=== PATIENT | male | born 1955 | race Caucasian/White ===

== ENCOUNTER → 2020-02-21 | Outpatient (CLI) | payer MEDICARE, MEDICAID ==
--- NOTE | 2020-02-21 16:03 | Diagnostic Imaging Report ---
EXAM: PET/CT INDICATION: Squamous cell of the head and neck. EXAMINATION: After intravenous administration of 14.38 mCi of F18-FDG, into the right antecubital fossa, a series of overlapping emission and transmission PET images was obtained. In the coronal, transaxial and sagittal planes, the area imaged extended from the skull base through the upper thighs. Height: 5' 10" Weight: 200 pounds. Blood glucose: 113 There are no prior PET/CT examinations available for comparison. The previous CT soft tissue neck exam from [facility] in [place], [place] performed on 01/17/2020, was reviewed. That study did show an asymmetrical 1.0 x 2.7 cm soft tissue density immediately posterior to the base of the tongue on the right. By history, the patient has had a recent biopsy of the right retromolar trigone approximately 2 weeks ago. The results of the biopsy indicated squamous cell carcinoma On this study, the previously noted mass is again identified and does appear to be hypermetabolic with a maximum SUV of 15.6. This would coincide with the patient's diagnosis of squamous cell carcinoma. Also, just inferior to the body of the mandible on the right, there is a 1.1 x 2.2 cm slightly hypermetabolic asymmetrically enlarged lymph node with a maximum SUV should be of 3. There is another small 0.8 x 1.1 cm slightly hypermetabolic node immediately posterior to the right submandibular gland. This has a maximum SUV of 3.4. Both of these nodes are worrisome for nodes involved by neoplasm. The CT images do show a 0.9 x 0.9 cm nodule in the right apex. This nodule is hypermetabolic with a maximum SUV of 5.5. There is also an area of increased hypermetabolic activity in the right hilum. The maximum SUV in this area is 4.5. In addition, there is a parenchymal nodule in the left upper lobe measuring 0.8 x 0.9 cm. The maximum SUV in this area is also 3.4. There is also a 2 cm focal area of intense hypermetabolic activity in the right lobe of the liver. The maximum SUV in this area is 8.2. All these findings should be considered neoplastic until proven otherwise. There is no other hypermetabolic activity to suggest malignancy. Physiologic activity is seen in the brain, the kidneys, the bowel and the bladder. The CT images failed to show any sign of an acute abnormality. IMPRESSION: 1. The recently biopsied mass near the base the tongue on the right is extremely hypermetabolic. This would be consistent with the patient's diagnosis of squamous cell carcinoma. There are also 2 nodes in this area which show slightly increased hypermetabolic activity. Both of these nodes are worrisome for nodes involved by neoplasm. 2. The nodules in both upper lobes and the hypermetabolic areas in the right hilum and right lobe of the liver should also be considered neoplastic until proven otherwise. 3. There is no other hypermetabolic activity to suggest the presence of malignancy. 4. There is no sign of an acute abnormality. Dictated by: Dictated on workstation # [id number]
== END ==
LOC: RAD 12:22
PROVIDERS: ATTEND Otolaryngology Otolaryngology/Facial Plastic Surgery
DX: C02.9 Malignant neoplasm of tongue, unspecified (principal); K76.89 Other specified diseases of liver; R91.8 Other nonspecific abnormal finding of lung field
CPT/HCPCS: 78815; A9552

== ENCOUNTER 2020-03-14 02:21 | Outpatient (RCR) | payer MEDICARE, MEDICAID ==
[~2020-03-14 02:21] MED LIST: ACHYD1T PO; ATOR80TA76 PO; BACL10TA PO; CELE200C PO; CLOP75TA69 PO; COLL30OI TP; DULO60CA6 PO; FISH1CAP15 PO; GABA800T PO; IPRA4AER IH; LATA7.5D OP; LISI-596 PO; MONT10TA21 PO; MULT-1136 PO; ZOLP5TAB PO
== END 2020-04-20 08:08 | disposition home or self-care (01) ==
LOC: ONC 02:21
PROVIDERS: ATTEND Internal Medicine Hematology & Oncology
DX: C02.9 Malignant neoplasm of tongue, unspecified (principal)
CPT/HCPCS: 99204; 99214

== ENCOUNTER 2020-07-26 09:44 | Outpatient (RCR) | payer MEDICARE, MEDICAID ==
[2020-06-20 10:57] LABS: BUN/CREATININE RATIO 10; CREATININE SERUM 0.83 MG/DL (0.60-1.30); GFR ESTIMATED > 60
[~2020-07-26 09:44] MED LIST changes: +NS IV 1000 ML (CANCER CTR) 1,000 ML ONE
== END 2020-07-30 09:46 | disposition home or self-care (01) ==
LOC: ONC 09:44
PROVIDERS: ATTEND Internal Medicine Hematology & Oncology
DX: C76.0 Malignant neoplasm of head, face and neck (principal)
CPT/HCPCS: 36415; 77290; 77300; 77301; 77334; 77336; 77338; 77386; 77470; 82565; 84520; 96360

== ENCOUNTER 2020-08-03 14:37 | Emergency (ER) | payer MEDICARE, MEDICAID ==
[~2020-08-03] VITALS: Ht 175.3 cm; Wt 81.6 kg
[~2020-08-03 14:37] MED LIST changes: -NS IV 1000 ML (CANCER CTR) 1,000 ML ONE
[2020-08-03] MEDS ORDERED: LACTATED RINGERS 1,000 ML IV ONE ×2 (14:39→14:45)
--- NOTE | 2020-08-03 15:13 | ED General ---
General Chief Complaint: Dizziness/Syncope Stated Complaint: SYNCOPE,WEAKNESS Nursing Triage Note: PT BROUGHT IN BY [facility] FROM [facility] WITH COMPLAINT OF SYNCOPAL EPISODE. PT STATES WENT TO URGENT CARE FOR N/V/D WEAKNESS THAT STARTED THURSDAY NIGHT AFTER HAVING RADIATION FOR ORAL CANCER. Nursing Sepsis Screen: No Definite Risk Source of Information: Patient (KARISHMA AGUILAR DO) History of Present Illness Date Seen by Provider: Aug 03, 2020 Time Seen by Provider: 14:39 Initial Comments PT ARRIVES VIA EMS FROM [facility] PT STATES HE HAS BEEN SICK SINCE Thursday07/31/19 WITH NAUSEA/VOMITING/DIARRHEA STATES HE HAS NOT HAD VOMITING SINCE THURSDAY, AND ONLY A LITTLE BIT OF DI ARRHEA X 1 EPISODE TODAY. NO BLACK/BLOODY/TARRY STOOLS. NO FEVER C/O GENERALIZED WEAKNESS --WORSE WITH SITTING OR STANDING STATES HE PASSED OUT ON THURSDAY--C/O RUQ AND RIGHT LOWER RIB PAIN--DOES NOT KNOW WHAT HE HIT WHEN HE PASSED OUT. DID NOT SEEK CARE AT THAT TIME. DENIES HITTING HIS HEAD OR HAVING INCREASED NECK OR BACK PAIN . PT HAD SYNCOPAL EPISODE AT [facility] TODAY WELL--NO INJURY PT IS HYPOTENSIVE FOR EMS--BP 70'S/40'S, HR IN 70'S, O2 SATS IN UPPER 80'S. PT DENIES CHEST PAIN NO SHORTNESS OF BREATH NO COUGH NO HEADACHE NO CHANGE IN CHRONIC NECK/BACK/SHOULDER PAIN NO VISION CHANGES PT WAS DX WITH ORAL CANCER 12/2019--HAD RADIATION ON THURSDAY--SYMPTOMS BEGAN AFTER RADIATION TREATMENT. WAS PT'S RADIATION TREATMENT, HAS NOT HAD THIS REACTION BEFORE PT HAS NOT RECEIVED ANY CHEMO OR HAD ANY SURGERY FOR THE CANCER PT STATES HE IS ONLY ABLE TO DRINK ENSURE--NOT TAKING ANY SOLID FOODS DUE TO ORAL CANCER PT WITH EXTENSIVE VASCULAR DISEASE, AND IS ON PLAVIX + ASPIRIN NO CHEST PAIN NO SHORTNESS OF BREATH NO PALPITATIONS PCP: DR. BYRD AT [facility] GOES TO [place] FOR WOUND CARE OF CHRONIC LEFT FOOT WOUND--HAS NOT BEEN THERE FOR > 1 1/2 MONTHS--NOT BEEN THERE SINCE HE STARTED RECEIVING RADIATION RECEIVING RADIATION TREATMENTS HERE AT [facility]. (KARISHMA AGUILAR DO) Allergies and Home Medications Allergies Coded Allergies: No Known Allergies (Verified Allergy, Unknown, 7/17/06) Home Medications Albuterol/Ipratropium 4 Gm Aero, 1 PUFF IH QID, (Reported) Atorvastatin Calcium 80 Mg Tablet, 80 MG PO DAILY, (Reported) Baclofen 10 Mg Tablet, 10 MG PO DAILY, (Reported) Celecoxib 200 Mg Capsule, 200 MG PO DAILY, (Reported) Clopidogrel Bisulfate 75 Mg Tablet, 75 MG PO DAILY, (Reported) Collagenase 30 Gm Oint..gm., 30 GM TP DAILY, (Reported) Duloxetine HCl 60 Mg Capsule.dr, 60 MG PO DAILY, (Reported) Fish Oil/Dha/Epa 1 Each Capsule, 1 EACH PO TID, (Reported) Gabapentin 800 Mg Tablet, 800 MG PO TID, (Reported) Hydrocodone Bit/Acetaminophen 1 Ea Tab, 1 EA PO Q4H, (Reported) Latanoprost/Pf 7.5 Ml Drops, 1 DROP OP HS, (Reported) Lisinopril 20 Mg Tablet, 20 MG PO DAILY, (Reported) Montelukast Sodium 10 Mg Tablet, 10 MG PO HS, (Reported) Multivitamin 1 Each Tablet, 1 TAB PO DAILY, (Reported) Zolpidem Tartrate 5 Mg Tablet, 5 MG PO HS, (Reported) Patient Home Medication List Home Medication List Reviewed: Yes (KARISHMA AGUILAR DO) Review of Systems Review of Systems Constitutional: see HPI; No chills, No diaphoresis, No fever; malaise, weakness EENTM: other (PER HPI-C/O DRY MOUTH--CHRONIC PROBLEM) Respiratory: no symptoms reported; No cough, No short of breath Cardiovascular: see HPI, chest pain (RIGHT LOWER RIBS); No edema, No palpitations; syncope Gastrointestinal: see HPI, abdominal pain (RUQ), diarrhea, nausea, vomiting Genitourinary: no symptoms reported Musculoskeletal: see HPI (NO NEW PAIN--ALL CHRONIC PAIN ) Skin: other (CHRONIC LEFT FOOT WOUND) Psychiatric/Neurological: Denies Headache, Denies Numbness, Denies Paresthesia, Denies Seizure, Denies Tingling, Denies Tremors Hematologic/Lymphatic: See HPI Immunological/Allergic: see HPI (KARISHMA AGUILAR DO) Past Orpdumc-Fhbfgx-Vmmnfs Hx Past Med/Social Hx: Reviewed and Corrections made (KARISHMA AGUILAR DO) Patient Social History Alcohol Use: Past History Recreational Drug Use: No Smoking Status: Current Everyday Smoker Type Used: Cigarettes Recent Foreign Travel: No Contact w/Someone Who Travel: No Recent Infectious Disease Expo: No Recent Hopitalizations: No (KARISHMA AGUILAR DO) Immunizations Up To Date Tetanus Booster (TDap): Unknown PED Vaccines UTD: Yes (KARISHMA AGUILAR DO) Seasonal Allergies Seasonal Allergies: No (KARISHMA AGUILAR DO) Past Medical History Surgeries: Yes Vascular Surgery Respiratory: Yes COPD Cardiac: Yes High Cholesterol, Hypertension, Peripheral Vascular Neurological: No Genitourinary: No Gastrointestinal: No Musculoskeletal: Yes Endocrine: No HEENT: No Cancer: Yes Oral Psychosocial: No Integumentary: No Blood Disorders: No (KARISHMA AGUILAR DO) Family Medical History SOCIAL HISTORY: -HX OF ETOH ABUSE/HEAVY USE--CLAIMS NONE FOR YEARS -DENIES DRUG USE -SMOKES 1/2 PPD NOW SINCE DX WITH ORAL CANCER--DOWN FROM 3 PPD FOR ALL OF HIS LIFE PAST SURGICAL HISTORY: -LIVER BIOPSY -SKIN GRAFT FOR CHRONIC FOOT ULCER -STENTS IN EACH ARM AND EACH LEG -LEFT CAROTID ENDARTERECTOMY (KARISHMA AGUILAR DO) Physical Exam Vital Signs Vital Signs - First Documented 08/03/20 08/03/20 14:39 14:40 Temp 35.8 Pulse 73 Resp 21 B/P (MAP) 70/45 (53) Pulse Ox 97 O2 Delivery Room Air O2 Flow Rate 3.00 (TIERA WILKINS) Vital Signs Capillary Refill : Less Than 3 Seconds (KARISHMA AGUILAR DO) Height, Weight, BMI Height: '" Weight: lbs. oz. kg; 26.00 BMI Method: General Appearance: Chronically ill, Thin, Other (FILTHY, UNKEMPT) HEENT: PERRL/EOMI, Pale Conjunctivae (L), Pale Conjunctivae (R), Other Neck: Normal Inspection, Non Tender Respiratory: Normal Breath Sounds, No Accessory Muscle Use, No Respiratory Distress, Other (MILD TENDERNESS TO RIGHT LOWER RIBS ANTERIORLY. NO CREPITANCE, NO DEFORMITY, NO SUB Q AIR. NO EXTERNAL EVIDENCE OF TRAUMA) Cardiovascular: Regular Rate, Rhythm, No Edema, No Murmur Gastrointestinal: Normal Bowel Sounds, No Pulsatile Mass, Soft, Tenderness (RUQ. NO EXTERNAL EVIDENCE OF TRAUMA) Back: No CVA Tenderness, No Vertebral Tenderness Extremity: No Pedal Edema, Other (LEFT FOOT WITH LARGE CHRONIC APPEARING FOOT ULCER TO DORSAL LATERAL ASPECT OF FOOT, PURULENT DRAINAGE, SURROUNDING ERYTHEMA AND EDEMA. ) Neurologic/Psychiatric: Alert, Oriented x3, No Motor/Sensory Deficits, Normal Mood/Affect, director geophysical laboratory II-XII Norm as Tested Skin: Warm/Dry; No Ecchymosis; Pallor; No Petechia (KARISHMA AGUILAR DO) Focused Exam Lactate Level 08/03/20 14:52: Lactic Acid Level 1.56 (TIERA WILKINS) Lactic Acid Level Laboratory Tests Test 08/03/20 14:52 Lactic Acid Level 1.56 MMOL/L (0.50-2.00) (TIERA WILKINS) Procedures/Interventions Lumen: triple (7 Syriac 20 cm triple-lumen catheter) Central Line Procedure: betadine prep (Chlorhexidine) Position: internal jugular (R) Anesthesia: Lidocaine (1% without epinephrine) Volume Anesthetic (ccs): 3 Complications: none Post Position: sutured, good blood return, position confirmed w/ CXR Risks, benefits and alternatives were discussed with the patient and he consented to the procedure. He was positioned in the usual format and using the usual sterile garment and drapes the patient was dressed out. The skin was thoroughly cleaned with the supplied chlorhexidine prep. After the prep and dried a sterile drape was placed. The 20 cm 7 Syriac triple-lumen catheter was flushed with sterile saline. We used ultrasound guidance to pass the introducer needle into the right internal jugular without difficulty. A guidewire was placed easily without difficulty. No ectopy was seen on the monitor. The supplied 11 blade scalpel was used to make a 2 mm incision at the inferior portion of the introducer needle. The introducer needle was replaced with the dilator. The dilator was taken out and the patient had the central lumen of the triple lumen catheter threaded over the guidewire and placed at 14 cm. The guidewire was removed and the triple-lumen catheter was stitched in place using the supplied braided stitch at 2 different points. The catheter withdrew blood and flushed easily. A sterile dressing was placed over the catheter. The patient tolerated the procedure well. A chest x-ray was obtained that demonstrated no pneumothorax and a new interval central catheter over the shadow of the right internal jugular down the superior vena cava and terminating just proximal to the right atria. (TIERA WILKINS) Progress/Results/Core Measures Suspected Sepsis Recent Fever Within 48 Hours: No Infection Criteria Present: None New/Unexplained Altered Menta: No Sepsis Screen: No Definite Risk SIRS Temperature: Pulse: 73 Respiratory Rate: 21 Laboratory Tests 08/03/20 14:52: White Blood Count 14.5H Blood Pressure 70 /45 Mean: 53 08/03/20 14:52: Lactic Acid Level 1.56 Laboratory Tests 08/03/20 14:52: Creatinine 1.13, INR Comment 1.1, Platelet Count 260, Total Bilirubin 0.2 (KARISHMA AGUILAR DO) Results/Orders Lab Results Laboratory Tests Test 08/03/20 14:52 08/03/20 15:00 Range/Units White Blood Count 14.5 H 4.3-11.0 10^3/uL Red Blood Count 2.23 L 4.30-5.52 10^6/uL Hemoglobin 6.7 *L 13.3-17.7 g/dL Hematocrit 21 L 40-54 % Mean Corpuscular Volume 95 80-99 fL Mean Corpuscular Hemoglobin 30 25-34 pg Mean Corpuscular Hemoglobin Concent 32 32-36 g/dL Red Cell Distribution Width 14.6 H 10.0-14.5 % Platelet Count 260 130-400 10^3/uL Mean Platelet Volume 10.2 9.0-12.2 fL Immature Granulocyte % (Auto) 1 % Neutrophils (%) (Auto) 91 H 42-75 % Lymphocytes (%) (Auto) 1 L 12-44 % Monocytes (%) (Auto) 6 0-12 % Eosinophils (%) (Auto) 1 0-10 % Basophils (%) (Auto) 0 0-10 % Neutrophils # (Auto) 13.2 H 1.8-7.8 10^3/uL Lymphocytes # (Auto) 0.2 L 1.0-4.0 10^3/uL Monocytes # (Auto) 0.9 0.0-1.0 10^3/uL Eosinophils # (Auto) 0.2 0.0-0.3 10^3/uL Basophils # (Auto) 0.0 0.0-0.1 10^3/uL Immature Granulocyte # (Auto) 0.1 0.0-0.1 10^3/uL Neutrophils % (Manual) 93 % Lymphocytes % (Manual) 2 % Monocytes % (Manual) 4 % Eosinophils % (Manual) 1 % Elliptocytes SLIGHT Erythrocyte Sedimentation Rate > 140 H 0-30 MM/HR Prothrombin Time 14.2 12.2-14.7 SEC INR Comment 1.1 0.8-1.4 Activated Partial Thromboplast Time 30 24-35 SEC D-Dimer 1.73 H 0.00-0.49 UG/ML Sodium Level 130 L 135-145 MMOL/L Potassium Level 5.1 H 3.6-5.0 MMOL/L Chloride Level 95 L 98-107 MMOL/L Carbon Dioxide Level 28 21-32 MMOL/L Anion Gap 7 5-14 MMOL/L Blood Urea Nitrogen 54 H 7-18 MG/DL Creatinine 1.13 0.60-1.30 MG/DL Estimat Glomerular Filtration Rate > 60 BUN/Creatinine Ratio 48 Glucose Level 117 H 70-105 MG/DL Lactic Acid Level 1.56 0.50-2.00 MMOL/L Calcium Level 9.1 8.5-10.1 MG/DL Corrected Calcium 9.8 8.5-10.1 MG/DL Magnesium Level 2.7 H 1.6-2.4 MG/DL Total Bilirubin 0.2 0.1-1.0 MG/DL Aspartate Amino Transf (AST/SGOT) 44 H 5-34 U/L Alanine Aminotransferase (ALT/SGPT) 28 0-55 U/L Alkaline Phosphatase 115 40-136 U/L Lactate Dehydrogenase 629 H 125-220 U/L Total Creatine Kinase 164 30-200 U/L Creatine Kinase MB 3.4 <6.6 NG/ML Myoglobin 317.3 H 10.0-92.0 NG/ML Troponin I < 0.028 <0.028 NG/ML B-Type Natriuretic Peptide 60.5 <100.0 PG/ML Total Protein 6.1 L 6.4-8.2 GM/DL Albumin 3.1 L 3.2-4.5 GM/DL Procalcitonin 0.53 H <0.10 NG/ML TSH [facility] Testing 0.90 0.35-4.94 UIU/ML Coronavirus 2019 (TIA) Negative Negative (TIERA WILKINS) Micro Results Microbiology 08/03/20 Influenza Types A,B Antigen (SOFIA) - Final, Complete (TIERA WILKINS) Medications Given in ED Current Medications Medications Dose Ordered Sig/Albert Route Start Time Stop Time Status Last Admin Dose Admin Iohexol 100 ml ONCE ONCE IV 08/03/20 16:00 08/03/20 16:03 DC 08/03/20 17:41 71 ML Lactated Ringer's 1,000 ml @ 0 mls/hr Q0M ONCE IV 08/03/20 14:45 08/03/20 14:46 DC 08/03/20 15:03 0 MLS/HR Ondansetron HCl 4 mg ONCE ONCE IVP 08/03/20 15:15 08/03/20 15:16 DC 08/03/20 15:16 4 MG Pantoprazole 80 mg ONCE ONCE IV 08/03/20 15:15 08/03/20 15:16 DC 08/03/20 15:16 80 MG Sodium Chloride 100 ml ONCE ONCE IV 08/03/20 16:00 08/03/20 16:03 DC 08/03/20 17:41 80 ML (TIERA WILKINS) Vital Signs/I&O 08/03/20 08/03/20 08/03/20 14:39 14:40 17:15 Temp 35.8 35.2 Pulse 73 65 Resp 21 16 B/P (MAP) 70/45 (53) 78/51 Pulse Ox 97 100 98 O2 Delivery Room Air Nasal Cannula O2 Flow Rate 3.00 3.00 (TIERA WILKINS) Vital Signs/I&O Capillary Refill : Less Than 3 Seconds (KARISHMA AGUILAR DO) Blood Pressure Mean: 53 Progress Note : Progress Note PLACED IN ISOLATION ROOM PPE WORN AT ALL TIMES COVID-19 TESTING PERFORMED PRIOR TO TRANSFER, PT HAS NEGATIVE RAPID COVID-19 TEST, WITH ONLY GI SYMPTOMS AND NO OTHER COVID-19 SYMPTOMS, PT TAKEN OFF COVID-19 P.U.I. STATUS. O2 SATS 100% ON 2L/NC GIVEN IV FLUIDS AND BLOOD AND PLACED ON LEVOPHED--BP UP TO > [address] SYSTOLIC. CENTRAL LINE PLACED BY DR. WILKINS (KARISHMA AGUILAR DO) ECG Initial ECG Impression Date: Aug 03, 2020 Initial ECG Impression Time: 14:54 Initial ECG Rate: 69 Initial ECG Rhythm: Normal Sinus (LOW VOLTAGE) Initial ECG Impression: Nonspecific Changes (KARISHMA AGUILAR DO) Diagnostic Imaging Comments CXR--PER RADIOLOGIST REPORT AT 1535 FINDINGS: Heart size is normal. There appears to be some infiltrate or atelectasis in the right perihilar region. Left lung is clear. No effusion or pneumothorax is detected. IMPRESSION: Minimal right perihilar infiltrate or atelectasis. CT CHEST/ABDOMEN/PELVIS--PER RADIOLOGIST REPORT AT 1716 IMPRESSION: 1. Multiple bilateral pulmonary nodules measuring up to 1.4 cm in the right lower lobe. Given history of oral cancer, these findings raise concern for pulmonary metastases. 2. Multiple heterogeneously hypoenhancing lesions throughout the liver concerning for hepatic metastases. 3. A 2.2 x 1.1 cm right perihilar lymph nodes concerning for kurtis metastasis. CT HEAD/CERVICAL SPINE--PER RADIOLOGIST VIA PHONE AT 1735 FINDINGS: CT HEAD: The ventricles and cortical sulci appear age-appropriate. There is no midline shift or mass effect. No CT evidence of acute territorial ischemia is seen. There are scattered areas of hypoattenuation which are likely from chronic microvascular disease. There is a small 6 mm hypodense focus in the right posterior frontal lobe, appears to be a small intraparenchymal hemorrhage or possibly subarachnoid. There is small hyperdensity along the right tentorium, concerning for a small subdural hemorrhage (image 54 series 601, measuring up to 3 mm in thickness. No skull fracture is seen. Mastoid air cells appear clear. Paranasal sinuses are clear. CT cervical spine: There is minimal anterolisthesis at C3-C4. There are marked degenerative changes at C5-C6 and C6-C7. Vertebral body heights are preserved. There is multilevel facet arthropathy, right greater than left. 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 There is calcific atherosclerosis. No bony fragments or hyperdense fluid collections are seen in the spinal canal. Surrounding soft tissues are unremarkable. IMPRESSION: 1. Tiny subcortical intraparenchymal hemorrhage in the right frontal lobe. No mass effect or midline shift. 2. Very small subdural hemorrhage along the right tentorium laterally. No significant mass effect. 3. Degenerative changes in the cervical spine with no fracture seen. CXR POST CENTRAL LINE PLACEMENT--PER RADIOLOGIST REPORT IMPRESSION: New right IJ central catheter tip overlies upper SVC. No pneumothorax or pleural fluid following line placement. The appearance of the chest is otherwise unchanged compared to earlier today. Reviewed: Reviewed by Me (KARISHMA AGUILAR DO) Critical Care Note Critical Care Total Time (minutes) 30 (KARISHMA AGUILAR DO) Departure Communication (Admissions) Family Conversation 1640--DAUGHTER NOW REPORTS THAT PT HAD UNWITNESSED SYNCOPAL EPISODE/FALL ON THURSDAY OR THURSDAY, AND HE HIT HIS HEAD. PT HAS NOT BEEN CONFUSED HAD ANY NEUROLOGICAL SYMPTOMS, AND DID NOT SEEK CARE AT THAT TIME. 175--SPOKE WITH DAUGHTER AND UPDATE ON PT'S CONDITION GIVEN AND INFORMED HER OF TRANSFER 1735--SPOKE WITH DR. OVALLES, SURGEON [employer], HE ADVISES TRANSFER TO FACILITY WITH NEUROSURGERY CAPABILITY. 1739--CALLED [facility] [place] [facility] 1745--CALLED [facility] NEUROSURGEON 1803--SPOKE WITH DR. JENSEN, NEUROSURGEON, HE ADVISES THAT HE WILL SEE PT IN CONSULT. WILL SEND PT TO ER 1808--SPOKE WITH DR. ELKNIS, ER PHYSICIAN, ACCEPTS PT FOR TRANSFER. NO ADDITIONAL RECOMMENDATIONS AT THIS TIME (KARISHMA AGUILAR DO) Impression Primary Impression: Severe anemia Additional Impressions: HYPOTENSION WITH SYNCOPE Dehydration ORAL CANCER WITH METASTASIS COPD (chronic obstructive pulmonary disease) ASVD (arteriosclerotic vascular disease) Intracranial hemorrhage following injury CHRONIC LEFT FOOT WOUND Disposition: XFER SHT-TRM HOSP Condition: Stable Transfer Transfer Reason: Exceeds level of care Transfer Facility: [place], [place] Method of Transfer: EMS (KARISHMA AGUILAR DO) Departure-Patient Inst. Referrals: VIVEK BYRD MD (PCP/Family) Primary Care Physician KARISHMA AGUILAR DO Aug 03, 2020 15:13 TIERA WILKINS Aug 03, 2020 18:27
[2020-08-03] MEDS ORDERED: ONDANSETRON 4 MG/2 ML (SDV) Z0FRAN IVP ONE (15:15)
[2020-08-03] MEDS ORDERED: PANTOPRAZOLE 40 MG (PROTONIX) VIAL IV ONE (15:15)
[2020-08-03 15:23] LABS: BASOPHILS % (AUTO) 0 % (0-10); EOSINOPHILS # (AUTO) 0.2 10^3/uL (0.0-0.3); EOSINOPHILS % (AUTO) 1 % (0-10); HEMATOCRIT 21 % (40-54); LYMPHOCYTES # (AUTO) 0.2 10^3/uL (1.0-4.0); LYMPHOCYTES % (AUTO) 1 % (12-44); MEAN CORPUSCULAR HEMOGLOBIN 30 pg (25-34); MEAN CORPUSCULAR HGB CONC 32 g/dL (32-36); MEAN CORPUSCULAR VOLUME 95 fL (80-99); MEAN PLATELET VOLUME 10.2 fL (9.0-12.2); MONOCYTES # (AUTO) 0.9 10^3/uL (0.0-1.0); MONOCYTES % (AUTO) 6 % (0-12); NEUTROPHILS # (AUTO) 13.2 10^3/uL (1.8-7.8); NEUTROPHILS % (AUTO) 91 % (42-75); PLATELET COUNT 260 10^3/uL (130-400); WHITE BLOOD COUNT 14.5 10^3/uL (4.3-11.0)
[2020-08-03 15:24] LABS: ALBUMIN 3.1 GM/DL (3.2-4.5); CHLORIDE 95 MMOL/L (98-107); POTASSIUM 5.1 MMOL/L (3.6-5.0); SODIUM 130 MMOL/L (135-145)
[2020-08-03 15:25] LABS: CALCIUM 9.1 MG/DL (8.5-10.1)
[2020-08-03 15:27] LABS: GLUCOSE 117 MG/DL (70-105); TOTAL PROTEIN 6.1 GM/DL (6.4-8.2)
[2020-08-03 15:28] LABS: BILIRUBIN,TOTAL 0.2 MG/DL (0.1-1.0); CARBON DIOXIDE 28 MMOL/L (21-32); HEMOGLOBIN 6.7 g/dL (13.3-17.7)
[2020-08-03 15:30] LABS: ALKALINE PHOSPHATASE 115 U/L (40-136); CREATININE SERUM 1.13 MG/DL (0.60-1.30); GFR ESTIMATED > 60
--- NOTE | 2020-08-03 15:30 | Diagnostic Imaging Report ---
INDICATION: Syncope and hypoxia. TIME OF EXAM: 03:16 p.m. COMPARISON: No prior studies are available for comparison. FINDINGS: Heart size is normal. There appears to be some infiltrate or atelectasis in the right perihilar region. Left lung is clear. No effusion or pneumothorax is detected. IMPRESSION: Minimal right perihilar infiltrate or atelectasis. Dictated by: Dictated on workstation # [id number]
[2020-08-03 15:31] LABS: BUN/CREATININE RATIO 48
[2020-08-03 15:33] LABS: ALANINE AMINOTRANSFERASE 28 U/L (0-55); MAGNESIUM 2.7 MG/DL (1.6-2.4)
[2020-08-03 15:34] LABS: CREATINE KINASE 164 U/L (30-200)
[2020-08-03 15:41] LABS: CREATINE KINASE MB 3.4 NG/ML (<6.6)
[2020-08-03 15:44] LABS: FIBRIN DEGRADATION PRODUCTS 1.73 UG/ML (0.00-0.49); INR 1.1 (0.8-1.4); PROTHROMBIN TIME PATIENT 14.2 SEC (12.2-14.7)
[2020-08-03 15:48] LABS: ERYTHROCYTE SEDIMENTATION RATE > 140 MM/HR (0-30)
[2020-08-03] MEDS ORDERED: IOHEXOL 350 MG/ML 100 ML (OMNIPAQUE 350) VIAL IV ONE (16:00)
[2020-08-03] MEDS ORDERED: NS IV 1000 ML 1,000 ML IV SCH ×2 (16:00→17:30)
[2020-08-03] MEDS ORDERED: NS 100 ML (IVPB) BAG IV ONE (16:00)
[2020-08-03] MEDS ORDERED: HOLD METFORMIN - RECEIVED CONTRAST 20 ML VIAL IV SCH (16:00)
--- NOTE | 2020-08-03 16:38 | Diagnostic Imaging Report ---
EXAMINATION: CT Chest, Abdomen and Pelvis with intravenous contrast. TECHNIQUE: Multiple contiguous axial images were obtained through the chest, abdomen and pelvis after the uneventful administration of intravenous contrast. All CT scans use one or more of the following dose optimizing techniques: automated exposure control, MA and/or KvP adjustment based on a patient size and exam type, or iterative reconstruction. HISTORY: Syncope with fall. COMPARISON: None available. FINDINGS: Thyroid: The visualized thyroid gland is normal. Mediastinum: Heart size is normal without significant pericardial effusion. The aorta is normal in caliber. There is a 2.2 x 1.1 cm right perihilar lymph node (series 2, image 28). Lungs and airways: Scattered areas of linear atelectasis or scarring within the right upper lung and left lower lobe. There is a 1.4 cm right lower lobe pulmonary nodule (series 2, image 37). There is 0.9 cm pulmonary nodule within the left lower lobe centrally (series 2, image 27). Bibasilar atelectasis. There is a 1.0 cm nodule within the right lung apex (series 2, image 12). No consolidation, pleural effusion, or pneumothorax. The airways are normal. Solid organs: Numerous heterogeneously hypoenhancing lesions within the liver with the largest conglomerate measuring approximately 6.6 cm (series 2, image 56). The gallbladder is normal. There is no biliary ductal dilation. Pancreas is normal. Spleen is normal. Adrenal glands are normal. The kidneys are normal without hydronephrosis. Bowel: The stomach and small bowel are normal without obstruction. There is scattered colonic diverticulosis. The appendix is normal. Peritoneum: There is no intraperitoneal free fluid or free air. No suspicious lymphadenopathy. Vasculature: Calcification of the aorta without aneurysm. Musculoskeletal: Degenerative changes of the spine without suspicious osseous lesion or compression fracture. Pelvis: The prostate gland is normal. The urinary bladder is normal. IMPRESSION: 1. Multiple bilateral pulmonary nodules measuring up to 1.4 cm in the right lower lobe. Given history of oral cancer, these findings raise concern for pulmonary metastases. 2. Multiple heterogeneously hypoenhancing lesions throughout the liver concerning for hepatic metastases. 3. A 2.2 x 1.1 cm right perihilar lymph nodes concerning for kurtis metastasis. Dictated by: Dictated on workstation # [id number]
[2020-08-03 16:58] LABS: ELLIPT/OVALOCYTES SLIGHT; EOSINOPHILS % (MANUAL) 1 %; LYMPHOCYTES % (MANUAL) 2 %; MONOCYTES % (MANUAL) 4 %; NEUTROPHILS % (MANUAL) 93 %
[2020-08-03 17:15] VITALS: BP 78/51
--- NOTE | 2020-08-03 17:22 | NUR ---
1722- blood started at this time 1730- blood infusion transitioned to rapid infuser at this time. 1745- first unit of blood finished transfusing at this time. Pt remains alert and oriented, Denies any pain. 175- Dr. Riggins at pt Bedside to insert central line. Pt verbalizes understanding. 175- Dr Rocha in room discusing pt need for transfer to higher care facilty with neuro. Pt verbalizes understanding. 1754- Second unit of blood started on rapid infuser. 1807- second unit of blood finished infusing. Pt remains alert and oriented at this time. Pt reports, "I need the remote I want to change to TV channel."
--- NOTE | 2020-08-03 17:36 | Diagnostic Imaging Report ---
PROCEDURE: CT head and CT cervical spine without contrast. TECHNIQUE: Multiple contiguous axial images were obtained through the brain and cervical spine without the use of intravenous contrast. Sagittal and coronal reformations through the cervical spine were then performed. Auto Exposure Controls were utilized during the CT exam to meet ALARA standards for radiation dose reduction. INDICATION: Trauma, head and neck injury COMPARISON: PET/CT from 02/21/2020 FINDINGS: CT HEAD: The ventricles and cortical sulci appear age-appropriate. There is no midline shift or mass effect. No CT evidence of acute territorial ischemia is seen. There are scattered areas of hypoattenuation which are likely from chronic microvascular disease. There is a small 6 mm hypodense focus in the right posterior frontal lobe, appears to be a small intraparenchymal hemorrhage or possibly subarachnoid. There is small hyperdensity along the right tentorium, concerning for a small subdural hemorrhage (image 54 series 601, measuring up to 3 mm in thickness. No skull fracture is seen. Mastoid air cells appear clear. Paranasal sinuses are clear. CT cervical spine: There is minimal anterolisthesis at C3-C4. There are marked degenerative changes at C5-C6 and C6-C7. Vertebral body heights are preserved. There is multilevel facet arthropathy, right greater than left. 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 There is calcific atherosclerosis. No bony fragments or hyperdense fluid collections are seen in the spinal canal. Surrounding soft tissues are unremarkable. IMPRESSION: 1. Tiny subcortical intraparenchymal hemorrhage in the right frontal lobe. No mass effect or midline shift. 2. Very small subdural hemorrhage along the right tentorium laterally. No significant mass effect. 3. Degenerative changes in the cervical spine with no fracture seen. Findings discussed with KARISHMA AGUILAR DO by Dr. Arteaga, on 08/03/2020 5:32 PM. Dictated by: Dictated on workstation # [id number]
[2020-08-03 17:45] VITALS: BP 119/98
[2020-08-03 17:54] VITALS: BP 108/88
[2020-08-03 18:07] VITALS: BP 85/52
[2020-08-03] MEDS ORDERED: NOREPINEPHRINE 4 MG/250 ML 250 ML IV SCH (18:30)
[2020-08-03 18:45] VITALS: BP 98/46
--- NOTE | 2020-08-03 18:45 | NUR ---
1845- 3rd unit of blood started at this time with primary Y type blood set tubing. PT reports, "what happened to my cigarettes, They were on my bed but got moved when was wworking on me." 185- PT belongings( shirt, wallet, hat, medical cards, cigarettes, rn emergency, and shoes) found and placed Pt belonging bag to be transfered to [facility] with pt.
--- NOTE | 2020-08-03 18:46 | Diagnostic Imaging Report ---
INDICATION: Line placement Frontal chest obtained at 6:31 p.m. and compared to same day at 3:16 p.m. There is a new right IJ central catheter tip overlying the upper SVC. There is no pneumothorax or pleural fluid following line placement. There is COPD change with some right apical scarring similar to the prior study. IMPRESSION: New right IJ central catheter tip overlies upper SVC. No pneumothorax or pleural fluid following line placement. The appearance of the chest is otherwise unchanged compared to earlier today. Dictated by: Dictated on workstation # [id number]
--- NOTE | 2020-08-03 19:10 | NUR ---
ems here for pt at this time
--- NOTE | 2020-08-03 19:25 | NUR ---
this RN observes pt transfer self without assistance from ED cot to EMS cot but scooting without difficulty.
[2020-08-03 19:29] VITALS: BP 126/68
== END 2020-08-03 19:29 ==
LOC: EDUNIT# 14:37 → ER 14:38
DX: S06.360A Traumatic hemorrhage of cerebrum, unspecified, without loss of consciousness, initial encounter (principal); S91.302A Unspecified open wound, left foot, initial encounter; R55 Syncope and collapse; I95.9 Hypotension, unspecified; C06.9 Malignant neoplasm of mouth, unspecified; E86.0 Dehydration; J44.9 Chronic obstructive pulmonary disease, unspecified; I25.10 Atherosclerotic heart disease of native coronary artery without angina pectoris; R19.7 Diarrhea, unspecified; I10 Essential (primary) hypertension; E78.00 Pure hypercholesterolemia, unspecified; F17.210 Nicotine dependence, cigarettes, uncomplicated; Z20.822 Contact with and (suspected) exposure to COVID-19; X58.XXXA Exposure to other specified factors, initial encounter
CPT/HCPCS: 70450; 71045; 71260; 72125; 74177; 80053; 82550; 82553; 83605; 83615; 83735; 83874; 83880; 84145; 84443; 84484; 85007; 85027; 85379; 85610; 85652; 85730; 86850; 86900; 86901; 86920; 87040; 87804; 93005; 93041; 99285; P9016; U0002; 36415; 87635

== ENCOUNTER → 2020-09-21 | Outpatient (CLI) | payer MEDICARE, MEDICAID ==
[~2020-09-21] MED LIST changes: +GADOBUTROL 10 MMOL/10 ML (GADAVIST) VIAL IV ONE
--- NOTE | 2020-09-21 12:15 | Diagnostic Imaging Report ---
PROCEDURE: MR imaging of the brain with and without contrast. TECHNIQUE: Multiplanar, multisequence MR imaging of the brain was performed with and without contrast. INDICATION: Oral cancer. Evaluate brain metastases. COMPARISON: 08/06/2020 FINDINGS: There has been interval increase in size in a heterogeneously enhancing mass within the right frontal lobe measuring 1.6 x 1.3 cm, previously measuring 1.0 x 0.8 cm. A small amount of associated blood products is seen at this lesion. There is increase in surrounding edema. A mostly hemorrhagic lesion is seen in the right temporal lobe which has increased in size and now measures 1.0 x 1.0 cm, previously measuring 0.5 cm. Associated edema has also increased in this area. Within the lateral right cerebellum a heterogeneously enhancing lesion is seen which has increased in size measuring 1.6 x 1.3 cm, previously measuring 0.4 cm. There has also been interval increase in associated edema. No evidence of midline shift or herniation. No acute ischemia. Chronic microvascular disease is seen throughout the periventricular and subcortical white matter. The ventricles, cortical sulci, and basilar cisterns are symmetric and unremarkable. There is flattening of the pituitary. The paranasal sinuses and mastoid air cells demonstrate normal signal characteristics. The globes and orbits are symmetric and unremarkable. The scalp and calvarium have a normal appearance. IMPRESSION: 1. Interval increase in size in the enhancing masses within the right frontal lobe, right temporal lobe, and right cerebellum, concerning for disease progression. There has also been increase in associated edema. No midline shift or herniation. No new focal lesions are identified. Recommend continued close followup as indicated. 2. No acute ischemia. 3. Chronic microvascular disease scattered throughout the periventricular and subcortical white matter. Dictated by: Dictated on workstation # [id number]
== END ==
LOC: RAD 10:15
PROVIDERS: ATTEND Radiology Radiation Oncology
DX: C06.9 Malignant neoplasm of mouth, unspecified (principal); C77.0 Secondary and unspecified malignant neoplasm of lymph nodes of head, face and neck; I67.9 Cerebrovascular disease, unspecified; R90.82 White matter disease, unspecified
CPT/HCPCS: 70553

== ENCOUNTER 2020-10-24 09:45 | Outpatient (RCR) | payer MEDICARE, MEDICAID ==
[~2020-10-24 09:45] MED LIST changes: -GADOBUTROL 10 MMOL/10 ML (GADAVIST) VIAL IV ONE
== END 2020-10-28 | disposition home or self-care (01) ==
LOC: ONC 09:45
PROVIDERS: ATTEND Internal Medicine Hematology & Oncology
DX: I95.9 Hypotension, unspecified (principal)
CPT/HCPCS: 77290; 77295; 77300; 77334; 77336; 77386; 77417